=== PATIENT | male | born 1965 | race Caucasian/White ===

== ENCOUNTER 2018-08-30 13:37 | Emergency (ER) | payer BC ==
[~2018-08-30] VITALS: Ht 175.3 cm; Wt 124.7 kg
--- OUTSIDE RECORDS SUMMARY | 2018-08-30 13:40 | XMS REPORT | Summary of Care ---
Author Author Sarah Lopez M.A. Organization Unknown Address Unknown Phone Unavailable Care Team Providers Care Career Specialist Name Role Phone GABRIELLE OCONNELL M.D. Unavailable Unavailable Unavailable Unavailable Functional Status Name Dates Details Functional status health issues are not documented Status: Name Dates Details Cognitive status health issues are not documented Status: Problems Name Dates Details Primary localized osteoarthritis of left knee (715.16, M17.12) Status: Active Left knee pain (719.46, M25.562) Status: Active Medications Name Dates Details Lisinopril TABS R.N. Active Furosemide TABS * Refills: 0 R.N. Active Supartz FX 25 MG/2.5ML Intra-articular Solution Prefilled Syringe INJECT 25 MG Weekly inject weekly for 5 weeks TDD:5 * Quantity: 5 Refills: 0 GABRIELLE OCONNELL M.D. * Start : 24-Jan-2018 Active 2.5 ML Syringe Allergies and Adverse Reactions Name Dates Details No Known Drug Allergies (Allergy) Status: Active Past Medical History Name Dates Details No pertinent past medical history Status: Resolved Procedures Procedure Dates Details Procedures not documented Immunization Name Dates Details Immunizations not documented Family History Name Dates Details Family history of Heart trouble (429.9, I51.9) Comments: Family History Status: Active Family history of malignant neoplasm (V16.9, Z80.9) Comments: Family History Status: Active Social History Name Dates Details Unknown if ever smoked Vital Signs Date Test Result Details No Known Vitals to report Results Date Description Value Details [id number] [U] XRAY KNEE 3 VWS LEFT [id number] XR KNEE 3 VWS LEFT Images acquired, not reported on this accession number. Plan of Care Name Dates Details Planned Observations Planned Goals not documented Planned Encounters Appointment; GABRIELLE OCONNELL M.D. On: 31-Jan-2018 9:15 Instructions Name Dates Details Instructions not documented Encounters Appointment; GABRIELLE OCONNELL M.D. Encounter Diagnosis: Problem not documented On: 10-Jan-2018 8:45
[2018-08-30 15:01] LABS: COLOR,URINE YELLOW (YELLOW); LEUKOCYTE ESTERASE ,URINE NEGATIVE (NEGATIVE)
[2018-08-30 15:02] LABS: BILIRUBIN,URINE NEGATIVE (NEGATIVE); NITRITE,URINE NEGATIVE (NEGATIVE); URINE UROBILINOGEN 0.2 mg/dL (0.2 - 1); WBC,URINE (MAN) 0-5 /HPF (0-5)
[2018-08-30 15:11] LABS: CLARITY,URINE CLEAR (CLEAR)
[2018-08-30 15:12] LABS: KETONES,URINE NEGATIVE (NEGATIVE); PROTEIN,URINE DIPSTICK NEGATIVE (NEGATIVE)
[2018-08-30 15:13] LABS: RBC,URINE 0-5 /HPF (0-5)
[2018-08-30 15:15] LABS: BACTERIA,URINE RARE /HPF; EPITHELIAL CELLS,URINE RARE /LPF
[2018-08-30 16:08] LABS: BASOPHILS # (AUTO) 0.1 (0.0-0.1); BASOPHILS % 0.6 % (0.0-1.0); EOSINOPHILS # (AUTO) 0.2 (0.0-0.4); EOSINOPHILS % 1.5 % (0.0-6.0); HEMATOCRIT 43.6 % (38.2-49.6); HEMOGLOBIN 14.3 g/dL (14.0-18.0); LYMPHOCYTES # (AUTO) 3.4 (1.0-3.2); LYMPHOCYTES % 30.9 % (18.0-39.1); MEAN CORPUSCULAR HEMOGLOBIN 29.5 pg (28-32); MEAN CORPUSCULAR HGB CONC 32.8 g/dL (31-35); MEAN CORPUSCULAR VOLUME 89.9 fL (81-99); MONOCYTES # (AUTO) 1.1 (0.2-0.8); MONOCYTES % 9.9 % (4.4-11.3); NEUTROPHILS # (AUTO) 6.1 (2.1-6.9); NEUTROPHILS % 56.1 % (38.7-80.0); PLATELET COUNT 239 x10e3/uL (140-360); RED BLOOD COUNT 4.85 x10e6/uL (4.3-5.7); RED CELL DISTRIBUTION WIDTH 14.5 % (11.7-14.4)
[2018-08-30 16:32] LABS: ALANINE AMINOTRANSFERASE 36 IU/L (0-55); ALBUMIN 3.7 g/dL (3.5-5.0); ALKALINE PHOSPHATASE 41 IU/L (40-150); ANION GAP 13.5 mmol/L (8-16); BLOOD UREA NITROGEN 16 mg/dL (7-26); BUN/CREATININE RATIO 17 (6-25); CALCIUM 9.4 mg/dL (8.4-10.2); CARBON DIOXIDE 25 mmol/L (22-29); CHLORIDE 104 mmol/L (98-107); CREATININE, SERUM 0.95 mg/dL (0.72-1.25); EST GLOMERULAR FILTRATION RATE > 60 ML/MIN (60-); GLUCOSE 91 mg/dL (74-118); POTASSIUM 4.5 mmol/L (3.5-5.1); SODIUM 138 mmol/L (136-145)
--- NOTE | 2018-08-30 18:07 | Diagnostic Imaging Report ---
CT Abdomen And Pelvis with Intravenous Contrast INDICATION: Right upper quadrant pain TECHNIQUE: Thin collimation axial images obtained from the diaphragm to the level of the pubic symphysis following the uneventful administration of 100 cc of low osmolar, nonionic intravenous contrast. Dose reduction techniques used: Automated exposure control, adjustment of the mAs and/or kVp according to patient size, standardized low-dose protocol, and/or iterative reconstruction technique. RADIATION DOSE: Total DLP: 882.8 mGy*cm Estimated effective dose: (DLP x 0.015 x size factor) mSv CTDIvol has been reviewed. It is below the limits set by the Radiation Protocol Committee (RPC). COMPARISON: None. ABDOMEN FINDINGS: Lung Bases: Posterior right pleural effusion measures 15 mm. There is a trace left pleural effusion. The heart is enlarged. No pericardial effusion. There is bibasilar subsegmental atelectasis. Liver: Decreased attenuation. No evidence for mass. Gallbladder: Present and appears normal. No biliary ductal dilatation. Pancreas: Diffuse fatty atrophy. Lipoma in the tail measures 8 mm. No ductal dilatation. Spleen: Normal in size. No evidence of mass.. Adrenal Glands: No evidence for mass. Kidneys: Right: Normal enhancement. No soft tissue mass. No hydronephrosis. Left: Normal enhancement. No soft tissue mass. No hydronephrosis. There is a retroaortic left renal vein. Lymph Nodes: No enlarged abdominal or retroperitoneal lymph nodes. Aorta: Normal in diameter with scattered calcifications. PELVIS FINDINGS: Bowel: Stomach: No wall thickening or dilatation. Small Bowel: Normal in caliber with normal wall thickness. Large Bowel: Mild burden of diverticulosis coli. No associated inflammation. Appendix: Normal appendix. Bladder: Well distended and normal. Ureters: Not dilated No free fluid or fluid collection. Bones: Mild degenerative changes of the spine. No focal osseous lesions. IMPRESSION: 1. Small pleural effusions. Cardiomegaly. 2. Steatosis. 3. No evidence for bowel obstruction or inflammation. Normal appendix. Mild burden of diverticulosis coli. 4. Normal gallbladder and biliary tree. 5. No evidence of renal calculus or obstructive uropathy. Signed by: Dr. Jame Fernandez MD on 08/30/2018 6:03 PM
[2018-08-30] MEDS ORDERED: IOPAMIDOL 370 MG/ML 200 ML INFUS..BTL INJ ONE (19:41)
[2018-08-30] MEDS ORDERED: SODIUM CHLORIDE 0.9% 50ML 50 ML ONE (19:41)
== END 2018-08-30 19:37 | disposition home or self-care (01) ==
LOC: ER 13:37
DX: R10.11 Right upper quadrant pain (principal); R11.0 Nausea
CPT/HCPCS: 36415; 74177; 80053; 81001; 85025; 93005; 99284; Q9967

== ENCOUNTER 2021-05-14 13:20 | Emergency (ER) | payer SELFPAY ==
[~2021-05-14] VITALS: Ht 175.3 cm; Wt 124.7 kg
[2021-05-14] MEDS ORDERED: CASIRIVIMAB/IMDEVIMAB 10 ML in SODIUM CHLORIDE 0.9% 100 ML IV ONE (15:00)
== END 2021-05-14 15:15 | disposition home or self-care (01) ==
LOC: ER 13:26
DX: R53.81 Other malaise (principal); U07.1 COVID-19; I50.9 Heart failure, unspecified
CPT/HCPCS: 99283